=== PATIENT | female | born 1950 | race Caucasian/White ===

== ENCOUNTER 2017-09-24 22:05 | Inpatient (IN) | payer OTHER, BC ==
[~2017-09-24] VITALS: Ht 167.6 cm; Wt 100.0 kg
[~2017-09-24 22:05] MED LIST: ALEVE220 MG PO; BENICAR20 MG PO; BENICAR40 MG PO; CYMBALTA60 MG PO; FISH OIL300 MG PO; FLONASE ALLERG9.9 ML BOTH NARES; IBUPROFEN800 MG PO; K-DUR20 MEQ PO; KRILL OIL500 MG PO; LANSOPRAZOLE30 MG PO; NAPROSYN500 MG PO; SPIRONOLACTONE25 MG PO; TRAMADOL-ACETA1 EACH PO; TYLENOL EXTRA500 MG PO; VITAMIN D35000 UNIT PO; ZESTRIL30 MG PO; ZYRTEC10 M2 PO
[2017-09-25] MEDS ORDERED: LIVALO4 MG BC (11:38)
[2017-09-25 12:05] VITALS: BP 152/70
[2017-09-25 21:47] VITALS: BP 164/69
[2017-09-25 21:50] VITALS: BP 164/69
[2017-09-25 23:50] VITALS: BP 161/71
[2017-09-26 03:57] VITALS: BP 170/76
[2017-09-26 08:20] VITALS: BP 168/70
[2017-09-26 11:58] VITALS: BP 162/78
[2017-09-26 15:40] VITALS: BP 112/62
[2017-09-27] VITALS: BP 136/60
[2017-09-27 07:49] VITALS: BP 143/68
== END 2017-09-27 13:15 | disposition home or self-care (01) | DRG 473 ==
LOC: ENRESERV 22:05 → 2SOUTH 09-25 10:44 → ENRESERV 09-25 19:44 → 3EAST 09-25 21:35
PROVIDERS: Neurological Surgery
PROC: 0RG10K1 Fusion of Cervical Vertebral Joint with Nonautologous Tissue Substitute, Posterior Approach, Posterior Column, Open Approach (ICD-10-PCS; principal; 2017-09-25)
DX: S12.112K Nondisplaced Type II dens fracture, subsequent encounter for fracture with nonunion (principal); V89.2XXD Person injured in unspecified motor-vehicle accident, traffic, subsequent encounter; I10 Essential (primary) hypertension; E03.9 Hypothyroidism, unspecified; E11.9 Type 2 diabetes mellitus without complications; K21.9 Gastro-esophageal reflux disease without esophagitis; Z88.0 Allergy status to penicillin; Z88.2 Allergy status to sulfonamides; Z87.891 Personal history of nicotine dependence
CPT/HCPCS: 72020; 72040; 76000; 82948; 86850; 86900; 86901; 94799; C1713; J0131; J1100; J1170; J2250; J2405; J2550; J2765; J3010; J3370; J3480; S0020